=== PATIENT | female | born 1955 | race Caucasian/White ===

== ENCOUNTER 2018-01-23 16:50 | Emergency (ER) | payer BC ==
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
--- NOTE | 2018-01-24 07:10 | CR ---
Chest and left ribs: Frontal view of the chest is obtained as well as three-views of the left ribs. Comparison: Prior chest x-ray of 04/09/14. Heart size appears within normal limits which has significantly improved from previous exam. AICD is present. Lungs are clear but somewhat hyperinflated. Mild scoliosis is noted within the spine. No discrete fracture or other left-sided rib abnormality is seen. Impression: 1. Emphysematous change. Nothing acute is seen. Other incidental findings. 2. No discrete left-sided rib abnormality is identified. Nondisplaced fracture could easily be missed. Diagnostic code #2
== END 2018-01-23 19:15 | disposition home or self-care (01) ==
LOC: JD.ED 16:50
DX: S20.222A Contusion of left back wall of thorax, initial encounter (principal); S00.531A Contusion of lip, initial encounter; F17.210 Nicotine dependence, cigarettes, uncomplicated; Z91.040 Latex allergy status; Z91.041 Radiographic dye allergy status; Z79.899 Other long term (current) drug therapy; Z88.8 Allergy status to other drugs, medicaments and biological substances; Y04.8XXA Assault by other bodily force, initial encounter
CPT/HCPCS: 71101-26-LT; 71101-LT; 81001; 99283; 99284

== ENCOUNTER 2023-08-15 17:19 | Emergency (ER) | payer BC, MEDICARE ==
[2023-08-15 18:17] LABS: BASOPHILS ABSOLUTE AUTO 0.1 K/mm3 (0.0-0.2); BASOPHILS PERCENT AUTO 0.8 % (0.0-1.0); EOSINOPHILS ABSOLUTE AUTO 0.4 K/mm3 (0.0-0.4); EOSINOPHILS PERCENT AUTO 4.5 % (0.0-6.0); HEMATOCRIT 40.9 % (37.0-47.0); HEMOGLOBIN 14.2 gm/dl (12.0-16.0); IMMATURE GRAN ABSOLUTE AUTO 0.03 K/mm3 (0.00-0.05); IMMATURE GRAN PERCENT AUTO 0.4 % (0.0-0.4); LYMPHOCYTES ABSOLUTE AUTO 2.5 K/mm3 (1.0-4.8); LYMPHOCYTES PERCENT AUTO 29.3 % (24.0-44.0); MEAN CORPUSCULAR HEMOGLOBIN 33.3 pg (28.0-32.0); MEAN CORPUSCULAR HGB CONC 34.7 g/dl (32.0-36.0); MEAN CORPUSCULAR VOLUME 95.8 fl (83.0-99.0); MEAN PLATELET VOLUME 10.9 fl (9.4-12.3); MONOCYTES ABSOLUTE AUTO 0.7 K/mm3 (0.0-0.8); MONOCYTES PERCENT AUTO 7.8 % (0.0-8.0); NEUTROPHILS ABSOLUTE AUTO 4.9 K/mm3 (1.8-7.7); NEUTROPHILS PERCENT AUTO 57.2 % (41.0-71.0); PLATELET COUNT,PLT 141 K/mm3 (150-400); RED BLOOD CELL COUNT 4.27 M/mm3 (4.10-5.30); WHITE BLOOD CELL COUNT,WBC 8.49 K/mm3 (3.9-11.3)
[2023-08-15 18:48] LABS: ALBUMIN 3.8 g/dl (3.4-5.0); ANION GAP 14.9 (5-15); BILIRUBIN TOTAL 0.4 mg/dL (0.2-1.0); BUN/CREATININE RATIO 20.9 (14-18); CALCIUM 9.4 mg/dL (8.5-10.1); CREATININE 1.1 mg/dL (0.55-1.02); EST CRCL DRUG DOSING (CG) 40.78 mL/min; POTASSIUM,K 3.9 mEq/L (3.5-5.1); PROTEIN TOTAL,TP 7.5 g/dl (6.4-8.2); TSH 12.605 uIU/mL (0.358-3.74)
[2023-08-15 19:43] LABS: APPEARANCE,URINE CLEAR (Clear); BILIRUBIN,URINE NEGATIVE (Negative); COLOR,URINE YELLOW (Yellow); GLUCOSE,URINE NEGATIVE (Negative); KETONES,URINE NEGATIVE (Negative); LEUKOCYTE ESTERASE,URINE 2+ (Negative); NITRITE,URINE NEGATIVE (Negative); OCCULT BLOOD,URINE NEGATIVE (Negative); PROTEIN,URINE TRACE (Negative); UROBILINOGEN,URINE 0.2 (0.2-1.0)
[2023-08-15 19:53] LABS: BACTERIA,URINE FEW /hpf (FEW); MUCUS,URINE FEW /hpf (FEW); RBC,URINE 0-5 /hpf (0-5); SQUAMOUS EPITHELIAL CELLS,UR 0-5 /hpf (0-5)
== END 2023-08-15 21:32 | disposition home or self-care (01) ==
LOC: JD.ED 17:19
DX: T82.897A Other specified complication of cardiac prosthetic devices, implants and grafts, initial encounter (principal); E03.9 Hypothyroidism, unspecified; F17.210 Nicotine dependence, cigarettes, uncomplicated; Z86.16 Personal history of COVID-19; Z91.041 Radiographic dye allergy status; Z91.040 Latex allergy status; Z88.8 Allergy status to other drugs, medicaments and biological substances; Z95.0 Presence of cardiac pacemaker
CPT/HCPCS: 36415; 71046; 71046-26; 80053; 81001; 83735; 83880; 84443; 84484; 85025; 87086; 93005; 93010; 99284

== ENCOUNTER 2024-12-28 17:21 | Emergency (ER) | payer MEDICARE, OTHER ==
[2024-12-28] MEDS ORDERED: EPINEPHrine 1:10,000 1 MG/10 ML Syringe ONE ×16 (17:31→17:59)
[2024-12-28] MEDS ORDERED: Calcium Gluconate 10% 1 GM/10 ML SDV ONE ×2 (17:31)
== END 2024-12-29 05:26 | disposition expired ==
LOC: JD.ED 17:21
DX: I46.9 Cardiac arrest, cause unspecified (principal); J96.01 Acute respiratory failure with hypoxia; I50.9 Heart failure, unspecified; J44.9 Chronic obstructive pulmonary disease, unspecified; Z95.810 Presence of automatic (implantable) cardiac defibrillator; Z95.0 Presence of cardiac pacemaker; Z91.041 Radiographic dye allergy status; Z88.8 Allergy status to other drugs, medicaments and biological substances; Z91.040 Latex allergy status; Z79.82 Long term (current) use of aspirin; Z79.899 Other long term (current) drug therapy; Z86.16 Personal history of COVID-19
CPT/HCPCS: 31500; 92950; 96374; 99291; A9270; J0171; J0612; 99285